=== PATIENT | female | born 1995 | race Caucasian/White ===

== ENCOUNTER 2016-08-26 22:34 | Emergency (ER) | payer BC ==
[2016-08-26] MEDS ORDERED: NS 0.9% 1000 ML* 2,000 ML IV ONE (22:52)
[2016-08-26] MEDS ORDERED: Ondansetron INJ* 2 MG/ML VIAL IV ONE (22:52)
[2016-08-26] MEDS ORDERED: Pantoprazole IV* 40 MG IV ONE (22:52)
[2016-08-26] MEDS ORDERED: Morphine INJ* 4 MG/ML 1 ML SYRINGE IV ONE (23:23)
[2016-08-26] MEDS ORDERED: Lidocaine 2% VISCOUS* 15 ML UDC PO ONE (23:23)
[2016-08-26] MEDS ORDERED: Al Hydrox/Mg Hydrox/Simet LIQ* 30 ML UDC PO ONE (23:23)
[2016-08-27 00:34] LABS: ALT 16 U/L (7-52); AST 18 U/L (13-39); Albumin 4.1 g/dL (3.2-5.2); Alkaline Phosphatase 52 U/L (34-104); Anion Gap 11 mmol/L (2-11); BUN/Creatinine Ratio 18.2 (8-20); Blood Urea Nitrogen 12 mg/dL (6-24); C Reactive Protein < 1.00 mg/L (< 5.00); CO2 Carbon Dioxide 19 mmol/L (22-32); Calcium 8.7 mg/dL (8.6-10.3); Chloride 107 mmol/L (101-111); EGFR African American 145.4 (>60); EGFR Non-African American 113.1 (>60); Globulin 2.9 g/dL (2-4); Glucose 137 mg/dL (70-100); Lipase 24 U/L (11.0-82.0); Sodium 137 mmol/L (133-145)
[2016-08-27 00:43] LABS: Hematocrit 36 % (35-47); Mean Corpuscular HGB Conc 33 g/dl (31-36); Mean Corpuscular Hemoglobin 29 pg (27-31); Mean Corpuscular Volume 88 fL (80-97); Mean Platelet Volume 8 um3 (7.4-10.4); Red Blood Count 4.13 10^6/ul (4.0-5.4); Red Cell Distribution Width 15 % (10.5-15); White Blood Count 12.3 10^3/ul (3.5-10.8)
[2016-08-27 01:00] LABS: TSH (Thyroid Stimulating Horm) 0.62 mcIU/mL (0.34-5.60)
[2016-08-27 01:34] LABS: Urine Bacteria Absent (Absent); Urine Bilirubin Negative (Negative); Urine Glucose Negative (Negative); Urine Nitrite Negative (Negative)
[2016-08-27] MEDS ORDERED: Al Hydrox/Mg Hydrox/Simet LIQ* 30 ML UDC PO ONE (01:53)
[2016-08-27] MEDS ORDERED: Lidocaine 2% VISCOUS* 15 ML UDC PO ONE (01:53)
[2016-08-27] MEDS ORDERED: Omeprazole CAP* 20 MG PO ONE (02:08)
[2016-08-27] MEDS ORDERED: Ondansetron ODT TAB* 4 MG PO ONE ×2 (02:09)
[2016-08-27 02:33] VITALS: BP 100/41
--- NOTE | 2016-08-27 08:03 | RAD ---
HISTORY: Right upper quadrant pain. COMPARISONS: None TECHNIQUE: Multiple transverse and longitudinal ultrasound images were obtained of the right upper quadrant. FINDINGS: LIVER: The liver is normal in dimensions and echogenicity. Normal hepatic and portal venous blood flow is duplicated with color flow imaging. There is no gross intrahepatic biliary duct dilatation. GALLBLADDER AND EXTRAHEPATIC BILIARY DUCT: The gallbladder is normal in appearance without intraluminal stones or other soft tissue masses. There is no pericholecystic fluid or gallbladder wall thickening. The common bile duct measures a maximum diameter of 2 mm. PANCREAS: The portions of the pancreas not obscured by bowel gas are normal in appearance. RIGHT KIDNEY: The right kidney is normal in size, morphology and echogenicity. AORTA AND IVC: The visualized portions are normal in appearance and not pathologically dilated. IMPRESSION: Normal ultrasound of the right upper quadrant.
--- NOTE | 2016-08-27 08:13 | ED ---
Wilfrido Chew [place], scribed for Donta Ferrell MD on 08/26/16 at 2306 . Abdominal Pain/Female - HPI Summary HPI Summary: Patient is a 20 y/o female who presents to the ED with burning abd pain since waking up this morning. Pt has a hx of H. pylori and states that pain is localized in the same place that it typically is. However, pain is worse and has lasted longer than typical. She reports vomiting and shaking. She denies taking any antacid. Pt also denies any known drug allergies. - History of Current Complaint Chief Complaint: EDAbdPain Stated Complaint: VOMITING,ABD PAIN Time Seen by Provider: 08/26/16 22:45 Hx Obtained From: Patient Hx Last Menstrual Period: 03/10/15 Onset/Duration: Gradual Onset, Lasting Hours, Still Present Timing: Constant Severity Initially: Moderate Severity Currently: Moderate Pain Intensity: 7 Pain Scale Used: 0-10 Numeric Location: Diffuse Radiates: No Character: Burning Aggravating Factor(s): Nothing Alleviating Factor(s): Nothing Associated Signs and Symptoms: Positive: Vomiting, Other: - Shaking. Allergies/Adverse Reactions: Allergies Allergy/AdvReac Type Severity Reaction Status Date / Time No Known Allergies Allergy Verified 03/14/15 13:11 PMH/Surg Hx/FS Hx/Imm Hx GI History: Reports: Other GI Disorders - H. pylori. - Surgical History Surgery Procedure, Year, and Place: summer 2014 - cyst surgery Infectious Disease History: Denies: History Other Infectious Disease, Traveled Outside the [place] in Last 30 Days - Family History Known Family History: Positive: Hypertension - Social History Alcohol Use: Rare Hx Substance Use: No Substance Use Type: Reports: None Hx Tobacco Use: No Smoking Status (MU): Never Smoked Tobacco Type: Cigarettes Review of Systems Negative: Fever Positive: Abdominal Pain, Vomiting Neurological: Other - Shaking. All Other Systems Reviewed And Are Negative: Yes Physical Exam Triage Information Reviewed: Yes Vital Signs On Initial Exam: Initial Vitals Temp Pulse Resp BP Pulse Ox 98.7 F 94 28 111/58 100 08/26/16 22:36 08/26/16 22:36 08/26/16 22:36 08/26/16 22:36 08/26/16 22:36 Vital Signs Reviewed: Yes Appearance: Positive: Well-Appearing, Pain Distress - Moderately. Skin: Positive: Warm, Skin Color Reflects Adequate Perfusion, Dry Head/Face: Positive: Normal Head/Face Inspection Eyes: Positive: EOMI, ASH Neck: Positive: Supple, Nontender Respiratory/Lung Sounds: Positive: Clear to Auscultation, Breath Sounds Present Cardiovascular: Positive: RRR Abdomen Description: Positive: Soft, Other: - Tender epigastric. Lower abd nontender. Bowel Sounds: Positive: Hypoactive Musculoskeletal: Positive: Normal, Strength/ROM Intact Neurological: Positive: Normal, Sensory/Motor Intact, Alert, Oriented to Person Place, Time Psychiatric: Positive: Affect/Mood Appropriate Diagnostics - Vital Signs Vital Signs Temp Pulse Resp BP Pulse Ox 08/26/16 22:36 98.7 F 94 28 111/58 100 - Laboratory Lab Results: Lab Results 08/27/16 08/27/16 08/27/16 Range/Units 00:00 00:00 00:00 WBC 12.3 H (3.5-10.8) 10^3/ul RBC 4.13 (4.0-5.4) 10^6/ul Hgb 12.0 (12.0-16.0) g/dl Hct 36 (35-47) % MCV 88 (80-97) fL MCH 29 (27-31) pg MCHC 33 (31-36) g/dl RDW 15 (10.5-15) % Plt Count 289 (150-450) 10^3/ul MPV 8 (7.4-10.4) um3 Neut % (Auto) 89.1 H (38-83) % Lymph % (Auto) 8.4 L (25-47) % Barton % (Auto) 2.4 (1-9) % Eos % (Auto) 0 (0-6) % Baso % (Auto) 0.1 (0-2) % Absolute Neuts (auto) 11.0 H (1.5-7.7) 10^3/ul Absolute Lymphs (auto) 1.0 (1.0-4.8) 10^3/ul Absolute Monos (auto) 0.3 (0-0.8) 10^3/ul Absolute Eos (auto) 0 (0-0.6) 10^3/ul Absolute Basos (auto) 0 (0-0.2) 10^3/ul Absolute Nucleated RBC 0 10^3/ul Nucleated RBC % 0 APTT 26.4 (26.0-36.3) seconds Sodium 137 (133-145) mmol/L Potassium 3.0 L (3.5-5.0) mmol/L Chloride 107 (101-111) mmol/L Carbon Dioxide 19 L (22-32) mmol/L Anion Gap 11 (2-11) mmol/L BUN 12 (6-24) mg/dL Creatinine 0.66 (0.51-0.95) mg/dL Est GFR ( Amer) 145.4 (>60) Est GFR (Non-Af Amer) 113.1 (>60) BUN/Creatinine Ratio 18.2 (8-20) Glucose 137 H (70-100) mg/dL Lactic Acid (0.5-2.0) mmol/L Calcium 8.7 (8.6-10.3) mg/dL Total Bilirubin 0.80 (0.2-1.0) mg/dL AST 18 (13-39) U/L ALT 16 (7-52) U/L Alkaline Phosphatase 52 (34-104) U/L Troponin I 0.00 (<0.04) ng/mL C-Reactive Protein < 1.00 (< 5.00) mg/L Total Protein 7.0 (6.4-8.9) g/dL Albumin 4.1 (3.2-5.2) g/dL Globulin 2.9 (2-4) g/dL Albumin/Globulin Ratio 1.4 (1-3) Lipase 24 (11.0-82.0) U/L TSH 0.62 (0.34-5.60) mcIU/mL Beta HCG, Quant < 0.60 mIU/mL Urine Color Urine Appearance Urine pH (5-9) Ur Specific [place] (1.010-1.030) Urine Protein (Negative) Urine Ketones (Negative) Urine Blood (Negative) Urine Nitrate (Negative) Urine Bilirubin (Negative) Urine Urobilinogen (Negative) Ur Leukocyte Esterase (Negative) Urine WBC (Auto) (Absent) Urine RBC (Auto) (Absent) Ur Squamous Epith Cells (Absent) Urine Bacteria (Absent) Urine Glucose (Negative) 08/27/16 08/27/16 Range/Units 00:00 01:15 WBC (3.5-10.8) 10^3/ul RBC (4.0-5.4) 10^6/ul Hgb (12.0-16.0) g/dl Hct (35-47) % MCV (80-97) fL MCH (27-31) pg MCHC (31-36) g/dl RDW (10.5-15) % Plt Count (150-450) 10^3/ul MPV (7.4-10.4) um3 Neut % (Auto) (38-83) % Lymph % (Auto) (25-47) % Barton % (Auto) (1-9) % Eos % (Auto) (0-6) % Baso % (Auto) (0-2) % Absolute Neuts (auto) (1.5-7.7) 10^3/ul Absolute Lymphs (auto) (1.0-4.8) 10^3/ul Absolute Monos (auto) (0-0.8) 10^3/ul Absolute Eos (auto) (0-0.6) 10^3/ul Absolute Basos (auto) (0-0.2) 10^3/ul Absolute Nucleated RBC 10^3/ul Nucleated RBC % APTT (26.0-36.3) seconds Sodium (133-145) mmol/L Potassium (3.5-5.0) mmol/L Chloride (101-111) mmol/L Carbon Dioxide (22-32) mmol/L Anion Gap (2-11) mmol/L BUN (6-24) mg/dL Creatinine (0.51-0.95) mg/dL Est GFR ( Amer) (>60) Est GFR (Non-Af Amer) (>60) BUN/Creatinine Ratio (8-20) Glucose (70-100) mg/dL Lactic Acid 2.2 H* (0.5-2.0) mmol/L Calcium (8.6-10.3) mg/dL Total Bilirubin (0.2-1.0) mg/dL AST (13-39) U/L ALT (7-52) U/L Alkaline Phosphatase (34-104) U/L Troponin I (<0.04) ng/mL C-Reactive Protein (< 5.00) mg/L Total Protein (6.4-8.9) g/dL Albumin (3.2-5.2) g/dL Globulin (2-4) g/dL Albumin/Globulin Ratio (1-3) Lipase (11.0-82.0) U/L TSH (0.34-5.60) mcIU/mL Beta HCG, Quant mIU/mL Urine Color Yellow Urine Appearance Cloudy Urine pH 7.0 (5-9) Ur Specific [place] 1.023 (1.010-1.030) Urine Protein 1+(30 mg/dl) H (Negative) Urine Ketones 2+ H (Negative) Urine Blood 2+ H (Negative) Urine Nitrate Negative (Negative) Urine Bilirubin Negative (Negative) Urine Urobilinogen Negative (Negative) Ur Leukocyte Esterase Trace H (Negative) Urine WBC (Auto) Trace(0-5/hpf) (Absent) Urine RBC (Auto) 2+(6-10/hpf) H (Absent) Ur Squamous Epith Cells Present H (Absent) Urine Bacteria Absent (Absent) Urine Glucose Negative (Negative) Result Diagrams: 08/27/16 00:00 08/27/16 00:00 Lab Statement: Any lab studies that have been ordered have been reviewed, and results considered in the medical decision making process. - Ultrasound No standard instances Ultrasound Interpretation Completed By: Radiologist - GALLBLADDER US IMPRESSION : Unremarkable gallbladder, liver, right kidney and visualized aorta and pancreas. NO biliary dilatation. Re-Evaluation - Re-Evaluation First Eval Re-Evaluation Time: 01:37 Comment: Informed pt of imaging results. Abdominal Pain Fem Course/Dx - Course Course Of Treatment: NO CRITICAL CARE TIME. PAIN IMPROVED IN ED AFTER IVF, PROTONIX AND GI COCKTAIL. DISCUSSED RESULTS WITH PATIENT. DISCHARGE HOME STABLE. - Diagnoses Provider Diagnoses: Epigastric abdominal pain, GERD (gastroesophageal reflux disease) Discharge - Discharge Plan Condition: Stable Disposition: HOME Prescriptions: Omeprazole CAP* [Prilosec CAP* 20 MG] 20 mg PO BID #30 cap. Ondansetron ODT TAB* [Zofran 4 MG Odt TAB*] 4 mg PO Q6H PRN #10 tab.odt PRN Reason: Nausea Sucralfate [Carafate] 1 gm PO QID PRN #60 tab PRN Reason: Pain Patient Education Materials: Gastroesophageal Reflux Disease (ED), Epigastric Pain (ED) Referrals: No Primary Care Phys,NOPCP [Primary Care Provider] - Additional Instructions: FOLLOW UP WITH YOUR DOCTOR. RETURN TO THE EMERGENCY DEPARTMENT FOR ANY WORSENING OF YOUR CONDITION; PAIN, FEVER, VOMITING, YOU FEEL ILL OR QUESTIONS OR CONCERNS. The documentation as recorded by the Wilfrido harris [place] accurately reflects the service I personally performed and the decisions made by me, Donta Ferrell MD.
== END 2016-08-27 02:40 | disposition home or self-care (01) ==
LOC: ED 22:34
DX: K21.9 Gastro-esophageal reflux disease without esophagitis (principal); R11.10 Vomiting, unspecified; R10.13 Epigastric pain
CPT/HCPCS: 36415; 76705; 80053; 81003; 81015; 83605; 83690; 84443; 84484; 84702; 85025; 85730; 86140; 87086; 96374; 96375; 99284; A9270-GY; J2270; J2405